=== PATIENT | male | born 1995 | race Caucasian/White ===

== ENCOUNTER 2019-09-22 10:59 | Emergency (ER) | payer OTHER, SELFPAY ==
--- NOTE | 2019-09-22 11:07 | ED.GENADULT ---
HPI - General Adult General Chief complaint: Upper Respiratory Infection Stated complaint: sore throat/nausea/diarrhea/fever/cough Time Seen by Provider: 09/22/19 11:29 Source: patient Mode of arrival: ambulatory Limitations: no limitations History of Present Illness HPI narrative: 24-year-old male patient presents to the [facility] care with complaints of cold symptoms for the past 2 days. Patient states he recently did have a tattoo done on his right forearm. Patient states he has been running fevers as high as 102. Nausea, vomiting. Patient states he has been able to keep down water today. Denies any abdominal pain at this time. Patient also complaining of sore throat at this time as well. Related Data Allergies Allergy/AdvReac Type Severity Reaction Status Date / Time POLLEN Allergy Unknown Unknown Uncoded 05/31/19 11:06 SHELLFISH Allergy Unknown Swelling Uncoded 05/31/19 11:06 Review of Systems Review of Systems: Narrative: CONSTITUTIONAL: Positive fever, chills, and sweats. EYES: Denies visual changes, redness, or discharge. ENT: Denies rhinorrhea, congestion, positive sore throat, denies otalgia. CARDIOVASCULAR: Denies chest pain, palpitations, or edema. RESPIRATORY: Denies cough or dyspnea. GASTROINTESTINAL: Denies abdominal pain, positive nausea, vomiting, denies diarrhea. GENITOURINARY: Denies dysuria or hematuria. SKIN: Denies rash or itching. Positive pain to right forearm where tattoo was recently done. MUSCULOSKELETAL: Denies back pain, joint pain, or myalgia. NEUROLOGIC: Denies headache, numbness, or weakness. PSYCHIATRIC: Denies anxiety or depression. [facility] Past Medical History Medical History (Updated 09/22/19 @ 11:44 by MONTSE Hernandez) Anxiety Depression Surgical History Surgical History (Updated 09/22/19 @ 11:08 by MONTSE Hernandez) History of orthopedic surgery Jaw wired, due to fracture Social History Social History Gender identity (if verbalized by the patient): Female Comments At the time of my signature I agree with nursing past medical history, surgical, social, and family history. There is no relevant family history pertinent to the presenting complaint. Exam Narrative: Exam Narrative: GENERAL: Well-appearing, well-nourished, and in no acute distress. HEAD: Normocephalic, atraumatic. EYES: PERRLA and EOMI. ENT: Nares clear, no rhinorrhea or epistaxis. Mucous membranes moist. Posterior pharynx with some erythema but no tonsil enlargement, no exudates or lesions present. Bilateral TMs are clear no erythema or foreign bodies in the canal. NECK: Supple. No lymphadenopathy CHEST: Clear to auscultation. No respiratory distress. HEART: Regular rate and rhythm. No murmur heard. Normal peripheral pulses. ABDOMEN: Soft, nontender, nondistended, normal active bowel sounds. EXTREMITIES: Normal range of motion. No edema. SKIN: Warm, dry, no rash. Patient has a very large tattoo noted to the right forearm that is new just a couple of days. The tattoo does appear shiny which patient states he did put lotion over it today. There is multiple little pus pockets throughout the tattoo and the forearm is warm to the touch and slightly swollen as compared to the left forearm. NEURO: No focal deficits. Alert and oriented x3. Course Vital Signs Vital signs: Vital Signs Temperature 36.6 C 09/22/19 11:08 Pulse Rate 96 09/22/19 11:08 Respiratory Rate 16 09/22/19 11:08 Blood Pressure 137/83 09/22/19 11:08 Pulse Oximetry 99 09/22/19 11:08 Temperature 36.6 C 09/22/19 11:08 Pulse Rate 96 09/22/19 11:08 Respiratory Rate 16 09/22/19 11:08 Blood Pressure 137/83 09/22/19 11:08 Pulse Oximetry 99 09/22/19 11:08 Vital signs reviewed. Transfer Transfered to: [place] Transfer rationale: Right forearm tattoo infection with nausea vomiting, and fevers Accepting physician: IZABELLA Crowe Transfer comments: Called and sp
[2019-09-22 11:08] VITALS: BP 137/83; PULSE 96; RESP 16; TEMP 36.6; O2SAT 99
== END 2019-09-22 11:44 | disposition short-term general hospital (02) ==
PROVIDERS: Emergency Provider Nurse Practitioner Family; PCP Internal Medicine
DX: L03.113 Cellulitis of right upper limb (principal); R11.2 Nausea with vomiting, unspecified
CPT/HCPCS: 87081; 87880; 99213; G0463

== ENCOUNTER 2019-09-22 11:55 | Emergency (ER) | payer OTHER, SELFPAY ==
[2019-09-22 12:00] VITALS: BP 127/91; PULSE 112; RESP 18; TEMP 37.1; O2SAT 99
--- NOTE | 2019-09-22 12:48 | ED.SKABFB ---
HPI - Skin/Abscess/Foreign Bdy General Chief complaint: Skin/Abscess/Foreign Body Stated complaint: tattoo infection Time Seen by Provider: 09/22/19 12:04 Source: patient Mode of arrival: ambulatory Limitations: no limitations History of Present Illness HPI narrative: This is a 24-year-old male that presents emergency department for redness of right forearm since yesterday. Reports he got a tattoo 4 days ago. Reports he noted some redness of the area starting yesterday. Also reports he had a fever yesterday. He was seen at urgent care today and sent here for further evaluation. Reports he is unsure of his last tetanus vaccine. Denies discharge Related Data Allergies Allergy/AdvReac Type Severity Reaction Status Date / Time POLLEN Allergy Unknown Unknown Uncoded 05/31/19 11:06 SHELLFISH Allergy Unknown Swelling Uncoded 05/31/19 11:06 Review of Systems Review of Systems: Narrative: CONSTITUTIONAL: Reports fever SKIN: Reports erythema MUSCULOSKELETAL: Denies joint pain, or myalgia. NEUROLOGIC: Denies numbness All systems reviewed & are unremarkable except as noted in HPI and below PMFSH Past Medical History Medical History (Updated 09/22/19 @ 13:43 by Amrtia Damon PA-C) Anxiety Depression Surgical History Surgical History (Updated 09/22/19 @ 11:08 by MONTSE Hernandez) History of orthopedic surgery Jaw wired, due to fracture Social History Social History (Updated 09/22/19 @ 12:48 by Amrita Damon PA-C) Smoking status: Never smoker Substance use: never Gender identity (if verbalized by the patient): Female Exam Narrative: Exam Narrative: GENERAL: Well-appearing, well-nourished, and in no acute distress. HEAD: Normocephalic, atraumatic. EYES: EOMI. CHEST: Clear to auscultation. No respiratory distress. No wheezes rales or rhonchi HEART: Regular rate and rhythm. No murmur heard. Normal peripheral pulses. EXTREMITIES: Normal range of motion. No edema. Mild erythema surrounding large tattoo covering the right forearm. No fluctuance to suggest abscess. No lymphangitic streaking. Normal radial pulses. Normal sensation SKIN: Warm, dry, no rash. NEURO: No focal deficits. Alert and oriented x3. PSYCH: Normal mood and affect Course Vital Signs Vital signs: Vital Signs Temperature 98.7 F 09/22/19 12:00 Pulse Rate 112 H 09/22/19 12:00 Respiratory Rate 18 09/22/19 12:00 Blood Pressure 127/91 H 09/22/19 12:00 Pulse Oximetry 99 09/22/19 12:00 Temperature 99.9 F H 09/22/19 13:01 Pulse Rate 92 09/22/19 13:34 Respiratory Rate 18 09/22/19 13:34 Blood Pressure 121/71 09/22/19 13:34 Pulse Oximetry 100 09/22/19 13:34 MDM - Skin/Abscess/Foreign Bdy MDM Narrative Medical decision making narrative: Patient presents the emergency department for redness of right forearm. He got a tattoo 4 days ago. Patient with mild swelling surrounding large tattoo over the right forearm. No fluctuance to suggest abscess. No lymphangitic streaking. He is afebrile and nontoxic-appearing. Mildly tachycardic upon arrival, this improved without intervention. Patient updated on tetanus and given a dose of IM antibiotic in the ED. Patient will be started on oral antibiotics. He is to follow-up with primary care doctor. He was given warnings to return to the ER Critical Care Time Critical Care Time Critical Care Time: No Discharge Plan Discharge Clinical Impression: Cellulitis of forearm, right Patient Disposition: Home, Self-Care Condition: Stable Instructions: Antibiotic Form, Cellulitis (ED) Additional Instructions: Return to the emergency department if you experience fever, increasing redness and swelling of your arm, or any other symptoms that are concerning to you Take antibiotics as prescribed. Clean the area multiple times daily with mild soap and water Follow-up with your primary care doctor Prescriptions: New doxycycline hyclate 100 mg tablet 10
[2019-09-22 13:01] VITALS: BP 127/91; PULSE 107; RESP 20; TEMP 37.7; O2SAT 100
[2019-09-22] MEDS: ceFAZolin SODIUM 1 GM VIAL IM (13:10)
[2019-09-22] MEDS: TETANUS,DIPHTHERIA,AC PERTUSSIS ADULT 0.5 ML (ADACEL) IM (13:10)
[2019-09-22] MEDS: WATER, STERILE FOR INJECTION 10 ML VIAL XX (13:17)
[2019-09-22 13:34] VITALS: BP 121/71; PULSE 92; RESP 18; O2SAT 100
== END 2019-09-22 13:51 | disposition home or self-care (01) ==
PROVIDERS: Emergency Provider Emergency Medicine; PCP Internal Medicine
DX: L03.113 Cellulitis of right upper limb (principal); Z23 Encounter for immunization
CPT/HCPCS: 90471; 90715; 96372; 99283; J0690

== ENCOUNTER 2020-08-10 11:48 | Emergency (ER) | payer OTHER, SELFPAY ==
[2020-08-10 12:00] VITALS: BP 148/93; PULSE 100; RESP 17; TEMP 37.1; O2SAT 100
--- NOTE | 2020-08-10 12:36 | ED.SKABFB ---
HPI - Skin/Abscess/Foreign Bdy General Chief complaint: Animal Bite Stated complaint: Dog Bite Source: patient Mode of arrival: ambulatory Limitations: no limitations History of Present Illness HPI narrative: Patient is a 25-year-old male who presents after being sent by his employer for dog bite. Patient reports being bit by dog on right forearm 2 days ago. Patient has healing wound and bruising to right forearm. He denies other injuries. He reports dog's vaccines are up-to-date. Patient reports tetanus shot within the last year. Patient denies any complaints at this time. MD complaint: other (Dog bite) Related Data Allergies Allergy/AdvReac Type Severity Reaction Status Date / Time SHELLFISH Allergy Severe Swelling Uncoded 08/10/20 12:00 POLLEN Allergy Mild Cough Uncoded 08/10/20 11:59 Review of Systems Review of Systems: Narrative: CONSTITUTIONAL: Denies fever, chills, or sweats. EYES: Denies visual changes, redness, or discharge. ENT: Denies rhinorrhea, congestion, sore throat, or otalgia. CARDIOVASCULAR: Denies chest pain, palpitations, or edema. RESPIRATORY: Denies cough or dyspnea. GASTROINTESTINAL: Denies abdominal pain, nausea, vomiting, or diarrhea. GENITOURINARY: Denies dysuria or hematuria. SKIN: Dog bite to right forearm MUSCULOSKELETAL: Denies back pain, joint pain, or myalgia. NEUROLOGIC: Denies headache, numbness, dizziness, or weakness. PSYCHIATRIC: Denies anxiety or depression. PMFSH Past Medical History Medical History Anxiety Depression Surgical History Surgical History History of orthopedic surgery Jaw wired, due to fracture Social History Social History (Updated 08/10/20 @ 12:43 by MONTSE Diaz) Smoking status: Never smoker Alcohol intake: current Substance use: never Gender identity (if verbalized by the patient): Male Comments At the time of signature, I have reviewed and agree with nursing past medical, surgical, social, and family history unless otherwise noted. Please see nursing chart for further information. There is no relevant family history pertinent to the presenting complaint. Exam Narrative: Exam Narrative: GENERAL: Well-appearing, well-nourished, and in no acute distress. HEAD: Normocephalic, atraumatic. EYES: EOMI. No redness or drainage. CHEST: No respiratory distress. HEART: Regular rate and rhythm. EXTREMITIES: Normal range of motion. No edema. SKIN: Slight erythema, small puncture wound and ecchymosis to right forearm NEURO: No focal deficits. Alert and oriented x3. Gait steady. PSYCH: Normal affect. No signs of depression or anxiety. Course Vital Signs Vital signs: Vital Signs Temperature 37.1 C 08/10/20 12:00 Pulse Rate 100 08/10/20 12:00 Respiratory Rate 17 08/10/20 12:00 Blood Pressure 148/93 H 08/10/20 12:00 Pulse Oximetry 100 08/10/20 12:00 Temperature 37.1 C 08/10/20 12:00 Pulse Rate 100 08/10/20 12:00 Respiratory Rate 17 08/10/20 12:00 Blood Pressure 148/93 H 08/10/20 12:00 Pulse Oximetry 100 08/10/20 12:00 Reviewed. Patient has been instructed to follow-up with his PCP regarding his blood pressure. MDM - Skin/Abscess/Foreign Bdy MDM Narrative Medical decision making narrative: Patient has small puncture wound from dog bite that occurred approximately 2 days ago, small amount of erythema and edema noted. Ecchymosis to right forearm. Patient reports tetanus is up-to-date and that dog was current on vaccinations. Patient to be started on Augmentin at this time. Patient is aware that if he has increased swelling or redness or drainage, that he is to go to the emergency department for further evaluation. Patient is to follow-up with PCP as needed. Differential Diagnosis Differential diagnosis: Likely abscess of skin or subcutaneous tissue, cellulitis and other (Dog bite) Critical C
== END 2020-08-10 12:51 | disposition home or self-care (01) ==
PROVIDERS: Emergency Provider Nurse Practitioner
DX: S51.831A Puncture wound without foreign body of right forearm, initial encounter (principal); W54.0XXA Bitten by dog, initial encounter
CPT/HCPCS: 99213; G0463

== ENCOUNTER 2021-07-18 08:31 | Emergency (ER) | payer OTHER, SELFPAY ==
[2021-07-18 08:42] VITALS: BP 138/92; PULSE 99; RESP 16; TEMP 36.3; O2SAT 100
--- NOTE | 2021-07-18 09:08 | ED.GENADULT ---
HPI - General Adult General Chief complaint: Upper Respiratory Infection Stated complaint: Sore Throat Time Seen by Provider: 07/18/21 09:09 Source: patient, RN notes reviewed and old records reviewed Mode of arrival: ambulatory Limitations: no limitations History of Present Illness HPI narrative: 26 year old male presents to [facility] care with complaints of sore throat, sinus drainage and congestion since Saturday with some cough noted. Patient denies any fever chills or sweats denies any body aches. Patient reports that he has been taking DayQuil and NyQuil and also took Zyrtec today. Patient has had Covid vaccination no booster yet no flu shot. Patient did have Covid over Thanksgiving timeframe this year. Patient denies any shortness of breath, no wheezing, respirations even and unlabored MD complaint: sore throat Onset (ago): day(s) (3 days) Related Data Allergies Allergy/AdvReac Type Severity Reaction Status Date / Time fluoxetine [From Prozac] Allergy Hives Verified 07/18/21 09:12 SHELLFISH Allergy Severe Swelling Uncoded 07/18/21 09:12 POLLEN Allergy Mild Cough Uncoded 07/18/21 09:12 Review of Systems Review of Systems: CONSTITUTIONAL: Denies fever, chills, or sweats. EYES: Denies visual changes, redness, or discharge. ENT: Positive rhinorrhea, congestion, sore throat, no otalgia. CARDIOVASCULAR: Denies chest pain, palpitations, or edema. RESPIRATORY: Positive intermittent cough no dyspnea. GASTROINTESTINAL: Denies abdominal pain, nausea, vomiting, or diarrhea. GENITOURINARY: Denies dysuria or hematuria. SKIN: Denies rash or itching. MUSCULOSKELETAL: Denies back pain, joint pain, or myalgia. NEUROLOGIC: Denies headache, numbness, or weakness. PSYCHIATRIC: Positive history of anxiety or depression. All systems reviewed & are unremarkable except as noted in HPI and below PMFSH Past Medical History Medical History Anxiety Depression Surgical History Surgical History History of orthopedic surgery Jaw wired, due to fracture Social History Social History (Updated 07/18/21 @ 09:26 by Ayana L. Donn, [employer]) Smoking packs per day: 0.25 Smoking cigarettes per day: 5.0 Smoking status: Current every day smoker Alcohol intake: current Substance use: never Living arrangements: with family Gender identity (if verbalized by the patient): Male Comments At time of signature, agree with nursing past medical, surgical, social and family history. There is no relevant family history pertinent to the presenting complaint Exam Narrative: GENERAL: Well-appearing, well-nourished, and in no acute distress. HEAD: Normocephalic, atraumatic. EYES: PERRLA and EOMI. ENT: Nares red, clear rhinorrhea no epistaxis. Mucous membranes moist. TMs normal with good light reflex. Throat red no lesions or exudates noted tonsils mildly swollen and red, some postnasal drainage NECK: Supple. lymphadenopathy CHEST: Clear to auscultation. No respiratory distress. SaO2 100% on room air HEART: Regular rate and rhythm. No murmur heard. Normal peripheral pulses. ABDOMEN: Soft, nontender, nondistended, normal active bowel sounds. EXTREMITIES: Normal range of motion. No edema. SKIN: Warm, dry, no rash. NEURO: No focal deficits. Alert and oriented x3. Course Course Level of Care: Express Care Visit Vital Signs Vital signs: Vital Signs Temperature 36.3 C L 07/18/21 08:42 Pulse Rate 99 07/18/21 08:42 Respiratory Rate 16 07/18/21 08:42 Blood Pressure 138/92 H 07/18/21 08:42 Pulse Oximetry 100 07/18/21 08:42 Temperature 36.3 C L 07/18/21 08:42 Pulse Rate 99 07/18/21 08:42 Respiratory Rate 16 07/18/21 08:42 Blood Pressure 138/92 H 07/18/21 08:42 Pulse Oximetry 100 07/18/21 08:42 Medical Decision Making Differential Diagnosis Differential Diagnosis: URI, pharyngitis, strep pharyngitis, vir
== END 2021-07-18 09:35 | disposition home or self-care (01) ==
PROVIDERS: Emergency Provider Registered Nurse
DX: J02.0 Streptococcal pharyngitis (principal); F17.210 Nicotine dependence, cigarettes, uncomplicated; Z86.16 Personal history of COVID-19
CPT/HCPCS: 87880; 99213; G0463